=== PATIENT | female | born 1950 ===

== ENCOUNTER 2022-03-18 07:00 | Day surgery (SDC) | payer OTHER | END 2022-03-18 13:00 | disposition home or self-care (01) | LOC: AMB-ENDOS 07:00 | PROVIDERS: ATTEND Surgery | DX: D12.0 Benign neoplasm of cecum (principal); K57.30 Diverticulosis of large intestine without perforation or abscess without bleeding; K64.8 Other hemorrhoids; E03.9 Hypothyroidism, unspecified; I10 Essential (primary) hypertension; E10.9 Type 1 diabetes mellitus without complications ==